=== PATIENT | female | born 1955 | race Caucasian/White ===

== ENCOUNTER → 2022-02-23 | Day surgery (SDC) | payer MEDICARE | LOC: MSO 07:59 | DX: Z12.11 Encounter for screening for malignant neoplasm of colon (principal); Z87.891 Personal history of nicotine dependence | CPT/HCPCS: 00812; J2704; J7120 ==

== ENCOUNTER → 2024-05-13 | Outpatient (CLI) | payer MEDICARE | LOC: RAD 09:26 | DX: R07.81 Pleurodynia (principal) ==